=== PATIENT | female | born 1985 | race Caucasian/White ===

== ENCOUNTER 2020-01-02 06:31 | Day surgery (SDC) | payer BC ==
--- NOTE | 2020-01-01 16:33 | Pre-Procedure Note/Attestation ---
Pre-Procedure Note/Attestation Complete Prior to Procedure Planned Procedure: bilateral Procedure Narrative: Bilateral reconstruction of nasal valves with post auricular graft. Indications for Procedure Pre-Operative Diagnosis: Nasal valve collapse Attestation I attest that I discussed the nature of the procedure; its benefits; risks and complications; and alternatives (and the risks and benefits of such alternatives), prior to the procedure, with the patient (or the patient's legal route service representative). I attest that, if there was a reasonable possibility of needing a blood transfusion, the patient (or the patient's legal route service representative) was given the [facility] standardized written summary, pursuant to the [place] Blood Safety Act ([place] Health and Safety Code # 1645, as amended). I attest that I re-evaluated the patient just prior to the surgery and that there has been no change in the patient's H&P, except as documented below #[id number]: Geoff Harding MD Jan 01, 2020 16:33
--- NOTE | 2020-01-01 16:34 | Brief Operative Note ---
Immediate Post Operative Note Operative Note Chief Complaint: nasal airway obstruction Pre-op Diagnosis: Nasal valve collapse Procedure: Bilateral reconstruction of nasal valves with post auricular graft. Post-op Diagnosis: same as pre-op Surgeon: Geoff Harding MD Interlocking And Signal Mechanic: none Additional Surgeons: none Anesthesiologist: Gabriela Anesthesia: general Specimen: none Complications: none Condition: stable Fluids: D5LR Estimated Blood Loss: volume - 10 cc Drains: none Packing: SinoNasal gel Tourniquet time: 0 Implant(s) used?: No Geoff Harding MD Jan 01, 2020 16:34
--- NOTE | 2020-01-01 16:37 | Discharge Instructions ---
Discharge Instructions Discharge Instructions Follow up with: Dr. Harding at his office 01/08/20 12:15 pm Diet: regular Resume Normal Activity?: No Activity: light activity Pneumonia Vaccine: pt refused vaccine Influenza Vaccine (Dec to May): pt refused vaccine Follow Up Orders pt has printed post op instructions that were reviewed with her at pre op visit last week. Return to Work/School on: Jan 16, 2020 Special Instructions ice to face x 48 hours For Surgical Patients Dressing Care: may change May shower: Yes For Congestive Heart Failure Reminder Report to your physician any weight gain of 5 pounds or more in one week. Geoff Harding MD Jan 01, 2020 16:37
--- NOTE | 2020-01-01 19:15 | Pre-op HX & Phy Repo 2 SIG ---
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 PAST MEDICAL HISTORY: Diagnosis of anxiety disorder and insomnia, PVCs. SOCIAL HISTORY: She is a light cigarette smoker. Single, no children. Did go through rehab for nasal drug. She is a film director. MEDICATIONS: Amoxicillin, cetirizine, Klonopin, Cymbalta, [place], Remeron. SURGICAL HISTORY: None. PHYSICAL EXAMINATION: Done on 12/25/2019. GENERAL: She is 5 feet 2 inches, 115 pounds. VITAL SIGNS: Blood pressure 120/80, temperature 96.9, pulse was 75, respiratory rate 13. HEENT: Normal ears. Positive light reflex. Normal canals. Mouth normal. NECK: Normal. NOSE: Nasal valve collapse. Positive Candido test. EXTREMITIES: Grossly normal. CHEST: Clear to A and P. ABDOMEN: Soft and nontender. Normoactive bowel sounds. HEART: Normal S1, S2. No S3 or S4. No murmur, bruits, gallops, or rubs at that time. GENITOURINARY: I did not do a breast exam or genitourinary exam as it is not indicated and is followed by her regular doctor. ASSESSMENT: She has nasal valve collapse and is a candidate for reconstruction with postauricular graft from behind her left ear. PLAN: Reconstruction of bilateral nasal valves with left postauricular cartilage graft. We have discussed the risks, benefits, and alternatives. Patient has preop and postop medicines and preop and postop care instructions, which we discussed in the office on 12/25/2019. We are safe to proceed with surgery without any other labs. She is otherwise healthy now. Geoff Harding M.D. DR: ESTER JOB#: [id number] CC: DARIEL
[~2020-01-02] VITALS: Ht 157.5 cm; Wt 52.2 kg
[2020-01-02] VITALS (11 sets, daily range): BP systolic 97–108; BP diastolic 59–71
[~2020-01-02 06:31] MED LIST: AMOXICILLIN500 MG ORAL; NORCO 5-325 TA1 EAC1 ORAL
--- NOTE | 2020-01-02 07:26 | Anethesia Preoperative Eval ---
Anesthesia Pre-op PMH/ROS General Date of Evaluation: Jan 02, 2020 Anesthesiologist: Jones ASA Score: ASA 2 Mallampati Score Class I : Soft palate, uvula, fauces, pillars visible Class II: Soft palate, uvula, fauces visible Class III: Soft palate, base of uvula visible Class IV: Only hard plate visible Mallampati Classification: Class I Surgeon: Mehdi Diagnosis: Nasal Valve collapse Surgical Procedure: reconstruction nasal valve, post auricular grafft Anesthesia History: none Family History: no anesthesia problems Allergies: Coded Allergies: APPLE (Verified Allergy, Intermediate, itchy in mouth, 01/02/20) Medications: see eMAR Patient NPO?: Yes NPO Date: Jan 02, 2020 NPO Time: 00:00 Past Medical History Cardiovascular: Reports: other - h/o PVCs; Denies: HTN, CAD, ND, valve dz, arrhythmia Pulmonary: Denies: asthma, COPD, SAMI, other Gastrointestinal/Genitourinary: Reports: GERD; Denies: CRI, ESRD, other Neurologic/Psychiatric: Reports: depression/anxiety; Denies: dementia, CVA, TIA, other Endocrine: Denies: DM, hypothyroidism, steroids, other HEENT: Denies: cataract (L), cataract (R), glaucoma, [place] (L), [place] (R), other Hematology/Immune: Denies: anemia, DVT, bleeding disorder, other Musculoskeletal/Integumentary: Denies: OA, RA, DJD, DDD, edema, other PSxH Narrative: Denies Anesthesia Pre-op Phys. Exam Physician Exam see chart Constitutional: NAD Cardiovascular: RRR Respiratory: CTA Airway Exam Mallampati Score: Class I MO: full ROM: full Teeth: intact Anesthesia Pre-op A/P Labs see chart Urine Test Test 01/02/20 06:50 Urine HCG, Qualitative Negative (NEGATIVE) Risk Assessment & Plan Assessment: ASA II Plan: GA Status Change Before Surgery: No Pre-Antibiotics Drug: Ancef 1g Given Within 1 Hr of Incision: Yes Paige Goldman MD Jan 02, 2020 07:26
[2020-01-02] MEDS ORDERED: Metoclopramide 10mg/2ml Inj IVP PRN ×3 (07:30→10:15)
[2020-01-02] MEDS ORDERED: LR 1000ml 1,000 ML IVLG SCH ×2 (07:30→08:45)
[2020-01-02] MEDS ORDERED: Hydromorphone 0.5mg/0.5ml inj IVP PRN ×2 (07:30→08:45)
[2020-01-02] MEDS ORDERED: DiphenhydrAMINE 50mg/ml Inj IVP PRN ×2 (07:30→08:45)
[2020-01-02] MEDS ORDERED: Labetalol 5mg/ml 20ml vial IV PRN ×2 (07:30→08:45)
[2020-01-02] MEDS ORDERED: LORazepam Inj 2mg/ml 1ml IV PRN ×2 (07:30→08:45)
[2020-01-02] MEDS ORDERED: Midazolam 2mg/2ml Inj IVP PRN ×2 (07:30→08:45)
[2020-01-02] MEDS ORDERED: fentaNYL 100 mcg/2 mL IV PRN ×2 (07:30→08:45)
[2020-01-02] MEDS ORDERED: ceFAZolin sod 1 GM in D5W 55 ML IV ONE (08:00)
[2020-01-02] MEDS ORDERED: CYMBALTA60 MG ORAL (08:13)
[2020-01-02] MEDS ORDERED: KLONOPIN1 MG ORAL (08:14)
[2020-01-02] MEDS ORDERED: Pantoprazole Inj ONE (08:26)
[2020-01-02] MEDS ORDERED: Cocaine HCl 4% 4ml vial TOPIC ONE (08:28)
[2020-01-02] MEDS ORDERED: Lidocaine 1% 10mg/ml/EPI 0.01mg/ml 30ml INJ ONE (08:28)
[2020-01-02] MEDS ORDERED: Bupivacaine 0.5% Inj 30 ml vial INJ ONE (08:29)
[2020-01-02] MEDS ORDERED: Sterile Water Irrig 1000ml IRRIG ONE (08:30)
[2020-01-02] MEDS ORDERED: LR 1000ml ONE (08:30)
[2020-01-02] MEDS ORDERED: fentaNYL 100 mcg/2 mL IV ONE (08:31)
[2020-01-02] MEDS ORDERED: Lidocaine 1% Plain 30 ml INJ ONE (08:35)
[2020-01-02] MEDS ORDERED: Lidocaine 1% MPF 10mg/ml 5ml ONE (08:43)
[2020-01-02] MEDS ORDERED: Sodium Chloride 10ml vial INJ ONE (08:43)
[2020-01-02] MEDS ORDERED: Meperidine 25mg/1ml Inj (FOR RIGORS ONLY) IV PRN (08:45)
[2020-01-02] MEDS ORDERED: oxyCODONE HCL/Acetaminophen 5/325mg ORAL PRN (08:45)
[2020-01-02] MEDS ORDERED: Atropine Sulfate 0.4mg/ml inj IVP PRN (08:45)
[2020-01-02] MEDS ORDERED: Ketorolac 30mg Inj IV PRN ×2 (08:45)
[2020-01-02] MEDS ORDERED: HYDROcodone/Acetamin 5/325 tab ORAL PRN ×2 (08:45→10:15)
[2020-01-02] MEDS ORDERED: HYDROcodone/Acetamin 7.5/325 tab ORAL PRN (08:45)
[2020-01-02] MEDS ORDERED: Acetaminophen (Non formulary) 100 ML IV ONE (08:45)
[2020-01-02] MEDS ORDERED: NS Irrig 1000ml IRRIG ONE (09:06)
--- NOTE | 2020-01-02 09:25 | Immediate Post-Op Evaluation ---
Immediate Post-Op Evalulation Immediate Post-Op Evalulation Procedure: Nasal Valve Reconstruction Date of Evaluation: Jan 02, 2020 Time of Evaluation: 10:08 IV Fluids: 1000 LR Blood Products: 0 Estimated Blood Loss: 10 Urinary Output: 0 Blood Pressure Systolic: 105 Blood Pressure Diastolic: 64 Pulse Rate: 99 Respiratory Rate: 16 O2 Sat by Pulse Oximetry: 100 Temperature (Fahrenheit): 97.5 Pain Score (1-10): 2 Nausea: No Vomiting: No Complications 0 Patient Status: awake, reacts, patent, none Hydration Status: adequate Dru Gram Ancef IV Given Within 1 Hr of Incision: Yes Time Given: 08:01 Chas Ochoa MD Jan 02, 2020 09:25
--- NOTE | 2020-01-02 09:26 | 48 Hour Post Anesthesia Eval ---
Post Anesthesia Evaluation Procedure: Nasal Valve Reconstruction Date of Evaluation: Jan 02, 2020 Time of Evaluation: 12:12 Blood Pressure Systolic: 111 0: 62 Pulse Rate: 83 Respiratory Rate: 18 Temperature (Fahrenheit): 97.5 O2 Sat by Pulse Oximetry: 100 Airway: patent Nausea: No Vomiting: No Pain Intensity: 2 Hydration Status: adequate Cardiopulmonary Status: Stable Mental Status/LOC: patient returned to baseline Follow-up Care/Observations: 0 Post-Anesthesia Complications: 0 Follow-up care needed: ready to discharge Chas Ochoa MD Jan 02, 2020 09:26
[2020-01-02] MEDS ORDERED: propofoL 1,000mg/100ml IV ONE (09:30)
[2020-01-02] MEDS ORDERED: HYDROmorphone 1mg/ml Carpuject SUBQ PRN (10:15)
--- NOTE | 2020-01-02 17:15 | Operative Note - Dictated ---
DATE OF OPERATION: 01/02/2020 SURGEON: Geoff Harding MD COLLAR BASTER JUMPBASTING: None. INDICATION FOR SURGERY: Nasal valve collapse. PREOPERATIVE DIAGNOSIS: Nasal valve collapse. POSTOPERATIVE DIAGNOSIS: Nasal valve collapse. FINDINGS: Nasal valve collapse. PROCEDURE: Reconstruction nasal valve with a left postauricular graft. TECHNIQUE: The patient was prepped and draped in usual manner. Time-out was performed. All agreed as the equipment and procedures to be done. Initially injected behind the left ear and lower third of the nose with 7 mL 50:50 mixture 1% lidocaine in 1:100,000 epinephrine and 0.5% bupivacaine without epinephrine. Initially, I made an incision behind the left ear and harvested a 2 cm x 1 cm cartilage. This was sewed shut with a running horizontal mattress 5-0 Prolene suture. I turned my attention to the nasal valve, made incisions in the nasal valve and a margin and cut part of the lower lateral cartilages leaving the inferior structure intact. I then placed a graft from behind the ear in the area and sew that into place with a 4-0 plain suture. I did this on either side to support the nasal valve . I then proceeded to take the remainder of the cartilage, make a small incision in the anterior nares where the medial little further to help the airway. This was also sewn shut with a 5-0 plain suture. Sinonasal gel was placed one syringe between the two nostrils. ESTIMATED BLOOD LOSS: 10 mL. COMPLICATIONS: None. DRAINS: None. The patient is awake and alert, and stable in the operating room status post extubation as well as in the recovery room. Geoff Harding M.D. DR: Christal JOB#: [id number] CC:
== END 2020-01-02 11:50 | disposition home or self-care (01) ==
LOC: SUR 06:31
DX: M95.0 Acquired deformity of nose (principal); F41.9 Anxiety disorder, unspecified; G47.00 Insomnia, unspecified; Z79.899 Other long term (current) drug therapy; K21.9 Gastro-esophageal reflux disease without esophagitis; Z91.018 Allergy to other foods
CPT/HCPCS: 21235; 30465; 81025; 94003; C9046; C9113; J0131; J0690; J1100; J2001; J2250; J2405; J2704; J3010; J3490; J7120; U0002; 94150; J2180